=== PATIENT | male | born 1960 | race Caucasian/White ===

== ENCOUNTER → 2020-01-23 08:21 | Outpatient (BNVA) | payer SELFPAY | PROVIDERS: Family Provider Internal Medicine; PCP Internal Medicine; Visit Provider Urology | DX: R97.20 Elevated prostate specific antigen [PSA] (principal); R39.9 Unspecified symptoms and signs involving the genitourinary system | CPT/HCPCS: 84153 ==

== ENCOUNTER → 2020-02-06 08:24 | Outpatient (BNVA) | payer SELFPAY | PROVIDERS: Family Provider Internal Medicine; PCP Internal Medicine; Visit Provider Urology | DX: R97.20 Elevated prostate specific antigen [PSA] (principal) | CPT/HCPCS: 88305 ==

== ENCOUNTER → 2020-08-13 11:44 | Outpatient (BNVA) | payer SELFPAY | PROVIDERS: Family Provider Internal Medicine; PCP Internal Medicine; Visit Provider Urology | DX: Z13.220 Encounter for screening for lipoid disorders (principal); I10 Essential (primary) hypertension | CPT/HCPCS: 80048; 80061; 81001; 84153 ==

== ENCOUNTER → 2021-02-24 12:58 | Outpatient (BNVA) | payer SELFPAY | PROVIDERS: PCP Internal Medicine; Visit Provider Urology | DX: R97.20 Elevated prostate specific antigen [PSA] (principal); N40.1 Benign prostatic hyperplasia with lower urinary tract symptoms | CPT/HCPCS: 81003; 84153 ==

== ENCOUNTER → 2021-08-25 08:43 | Outpatient (BNVA) | payer SELFPAY | PROVIDERS: PCP Internal Medicine; Visit Provider Urology | DX: R97.20 Elevated prostate specific antigen [PSA] (principal); N40.1 Benign prostatic hyperplasia with lower urinary tract symptoms | CPT/HCPCS: 81003; 84153 ==

== ENCOUNTER → 2022-02-24 08:01 | Outpatient (BNVA) | payer SELFPAY | PROVIDERS: PCP Internal Medicine; Visit Provider Nurse Practitioner Family | DX: R97.20 Elevated prostate specific antigen [PSA] (principal); N40.1 Benign prostatic hyperplasia with lower urinary tract symptoms | CPT/HCPCS: 81003; 84153 ==

== ENCOUNTER → 2022-08-25 08:07 | Outpatient (BNVA) | payer SELFPAY | PROVIDERS: PCP Internal Medicine; Visit Provider Urology | DX: R97.20 Elevated prostate specific antigen [PSA] (principal); N40.1 Benign prostatic hyperplasia with lower urinary tract symptoms | CPT/HCPCS: 36415; 81003; 84153 ==

== ENCOUNTER → 2022-11-18 08:01 | Outpatient (BNVA) | payer SELFPAY | PROVIDERS: PCP Internal Medicine; Visit Provider Urology | DX: N40.1 Benign prostatic hyperplasia with lower urinary tract symptoms (principal) | CPT/HCPCS: 81003; 87086; 88112 ==

== ENCOUNTER 2022-12-02 07:59 | Outpatient (CLI) | payer SELFPAY ==
[2022-12-02] MEDS: iohexol 350 mg/mL 500 mL Btl (per mL) IV (08:26)
--- NOTE | 2022-12-02 08:30 | CT_ITS ---
WS: [id number] CT ABDOMEN PELVIS TECHNIQUE: Noncontrast CT of the abdomen and contrast-enhanced CT of the abdomen and pelvis with benedicto nal and sagittal reformatted images. CLINICAL INFORMATION: Hematuria COMPARISON: None. DLP: 2035.[address] scans at [facility] use at least one of these dose optimization techniques: automated e xposure control; mA and/or kV adjustment per patient size (includes targeted exams where dose is matc hed to clinical indication); or iterative reconstruction. FINDINGS: Enlarged heterogeneous nodular prostate gland measuring 6.3 x 6.6 cm. Evidence of bladder outlet obst ruction. Recommend correlation PSA. Diffuse thickening of the seminal vesicles bilaterally. Sigmoid d iverticulosis. No evidence of acute diverticulitis. Normal appendix in the RIGHT lower quadrant. Normal caliber abdominal aorta. A few slightly prominent LEFT para-aortic lymph nodes nonspecific lar gest measuring 1.4 CM. These are nonspecific but metastatic disease not excluded. Lung bases are well aerated. Normal hepatic parenchymal enhancement. Portal vein and splenic vein are patent. Normal spleen. Small esophageal hernia. No hydronephrosis in either kidney. No obstructing r enal or ureteral calculi. No inguinal lymphadenopathy. No pelvic lymphadenopathy. Normal renal excretion on the delayed images with filling of both ureters. Normal filling of the bladder. Advanced osteoarthritis RIGHT hip with s ubchondral cystic changes. CT/CT abdomen pelvis wo/w [id number] IMPRESSION: 1. Marked enlargement of prostate measuring 6 to 7 cm with heterogeneous enhan cement. Indentation on the bladder with bladder outlet obstruction. Findings gerber spicious for neoplasia. Recommend correlation PSA. 2. Diffuse thickening of the seminal vesicles bilaterally. 3. Slightly enlarged shotty LEFT periaortic lymph nodes nonspecific but metast atic disease not entirely excluded. 4. No hydronephrosis in either kidney. No obstructing renal or ureteral calcul i. 5. Small esophageal hiatal hernia. 6. No other acute findings.
[2022-12-02 08:52] LABS: Blood Urea Nitrogen 8 mg/dL (8-23)
== END 2022-12-02 08:00 | disposition home or self-care (01) ==
LOC: RAD 08:00
PROVIDERS: PCP Internal Medicine; Visit Provider Urology
DX: R31.9 Hematuria, unspecified (principal); N40.1 Benign prostatic hyperplasia with lower urinary tract symptoms; K44.9 Diaphragmatic hernia without obstruction or gangrene
CPT/HCPCS: 74178; 81003; 82565; 84520; Q9967